=== PATIENT | female | born 1950 | race Caucasian/White ===

== ENCOUNTER 2017-11-09 05:50 | Day surgery (SDC) | payer OTHER ==
[~2017-11-09 05:50] MED LIST: COZAAR100 MG PO
== END 2017-11-09 12:20 | disposition home or self-care (01) ==
LOC: CIR.AMB 05:50
DX: M75.121 Complete rotator cuff tear or rupture of right shoulder, not specified as traumatic (principal); M75.21 Bicipital tendinitis, right shoulder; M24.111 Other articular cartilage disorders, right shoulder